=== PATIENT | female | born 1955 | race African-American/Black ===

== ENCOUNTER 2020-11-25 19:26 | Inpatient (IN) | payer MEDICARE, MEDICAID ==
[~2020-11-25] VITALS: Ht 162.6 cm; Wt 68.0 kg
[2020-11-25] MEDS ORDERED: DEXTROSE 50% WATER 50ML SYRINGE IV ONE (20:00)
[2020-11-25] MEDS ORDERED: LEVOFLOXACIN 500MG PREMIX 100 ML IV ONE (20:00)
[2020-11-25] MEDS ORDERED: VANCOMYCIN 1 G PREMIX 200 ML IV ONE (20:00)
[2020-11-25 20:44] LABS: BASOPHILS % 0.5 % (0.0-2.0); EOSINOPHILS % 1.7 % (0.0-5.0); HEMATOCRIT. 36.2 % (36.0-48.0); HEMOGLOBIN. 11.2 g/dL (12.0-16.0); LYMPHOCYTES % 21.2 % (20.0-50.0); MEAN CORPUSCULAR HEMOGLOBIN 29.3 pg (28.0-32.0); MEAN PLATELET VOLUME 9.6 fl (7.4-10.4); MONOCYTES % 7.6 % (2.0-8.0); PLATELET 199 x1000/uL (130-400); RED BLOOD CELL COUNT 3.81 mill/uL (4.2-5.4); RED CELL DISTRIBUTION WIDTH 17.4 % (11.6-14.6)
[2020-11-25 20:52] LABS: CHLORIDE 103 mEq/L (98-107)
[2020-11-25 20:56] LABS: ETHANOL BLOOD < 10 mg/dL
[2020-11-26] MEDS ORDERED: ASPIRIN 325MG EC TABLET PO ONE
[2020-11-26] MEDS ORDERED: ASPIRIN 325MG EC TABLET PO SCH (04:00)
[2020-11-26] MEDS ORDERED: DOCUSATE SODIUM 100MG CAPSULE PO PRN (06:45)
[2020-11-26] MEDS ORDERED: MAGNESIUM/ALUMINUM HYDROXIDE/SIMETHICONE 30ML UDC PO PRN (06:45)
[2020-11-26] MEDS ORDERED: GUAIFENESIN 200MG/10ML SUGAR FREE UDC PO PRN (06:45)
[2020-11-26] MEDS ORDERED: ONDANSETRON HCL 4MG/2ML INJ IV PRN (06:45)
[2020-11-26] MEDS ORDERED: ACETAMINOPHEN 325MG TABLET PO PRN (06:45)
[2020-11-26] MEDS ORDERED: CLONIDINE 0.1MG TABLET PO PRN (06:45)
[2020-11-26] MEDS ORDERED: ENOXAPARIN 40MG/0.4ML SYR SUBCUT SCH (06:45)
[2020-11-26] MEDS: DEXT 5%/0.45% NACL 1000ML 1,000 ML IV SCH ×3 (07:07→21:12)
[2020-11-26 09:35] VITALS: BP 89/72
[2020-11-26] MEDS: AMLODIPINE 10MG TABLET PO SCH (09:35)
[2020-11-26 10:00] VITALS: BP 89/72
[2020-11-26 12:00] VITALS: BP 116/59
[2020-11-26] MEDS ORDERED: HYDR-4135 PO (12:35)
[2020-11-26] MEDS ORDERED: SEVELAMER PO (12:35)
[2020-11-26] MEDS ORDERED: ATOR10TA69 PO (12:37)
[2020-11-26] MEDS ORDERED: CLOP75TA4 PO (12:37)
[2020-11-26] MEDS ORDERED: PANT40TA51 PO (12:37)
[2020-11-26] MEDS ORDERED: FAMO20TA8 PO (12:38)
[2020-11-26] MEDS ORDERED: CALC0.5C10 PO (12:38)
[2020-11-26] MEDS ORDERED: PREG75CA PO (12:38)
[2020-11-26 16:00] VITALS: BP 142/68
[2020-11-26 17:40] LABS: T4 FREE 4.37 ng/dL (0.76-1.46)
[2020-11-26 20:00] VITALS: BP 106/55
[2020-11-26] MEDS: ENOXAPARIN 30MG/0.3ML SYR SUBCUT SCH ×2 (21:00→21:12)
[2020-11-26] MEDS: BACITRACIN 15GM TUBE TOP SCH (21:24)
[2020-11-27] VITALS: BP 118/50
[2020-11-27 04:00] VITALS: BP 121/70
[2020-11-27 08:14] VITALS: BP 135/63
[2020-11-27] MEDS: BACITRACIN 15GM TUBE TOP SCH ×2 (09:00→21:54)
[2020-11-27] MEDS: AMLODIPINE 10MG TABLET PO SCH (09:00)
[2020-11-27] MEDS: DEXT 5%/0.45% NACL 1000ML 1,000 ML IV SCH ×2 (09:07→23:33)
[2020-11-27] MEDS ORDERED: PANTOPRAZOLE 40MG DR TABLET PO SCH (10:00)
[2020-11-27] MEDS: CLOPIDOGREL 75MG TABLET PO SCH (11:47)
[2020-11-27] MEDS: FAMOTIDINE 20MG TABLET PO SCH (11:47)
[2020-11-27] MEDS: CALCITRIOL 0.25MCG CAPSULE PO SCH (11:47)
[2020-11-27] MEDS: PREGABALIN 75MG CAPSULE PO SCH (11:47)
[2020-11-27 12:00] VITALS: BP 146/47
[2020-11-27] MEDS: METHIMAZOLE 5MG TABLET PO SCH ×2 (12:31→18:05)
[2020-11-27] MEDS: HYDRALAZINE HCL 50MG TABLET PO SCH ×2 (14:00→21:53)
[2020-11-27 15:52] LABS: BASOPHILS % 0.5 % (0.0-2.0); EOSINOPHILS % 3.1 % (0.0-5.0); HEMATOCRIT. 25.2 % (36.0-48.0); HEMOGLOBIN. 8.1 g/dL (12.0-16.0); LYMPHOCYTES % 21.5 % (20.0-50.0); MEAN CORPUSCULAR HEMOGLOBIN 29.6 pg (28.0-32.0); MEAN CORPUSCULAR VOLUME 91.4 fL (81.0-99.0); MEAN PLATELET VOLUME 10.1 fl (7.4-10.4); MONOCYTES % 14.2 % (2.0-8.0); NEUTROPHILS % 60.7 % (40.0-76.0); PLATELET 147 x1000/uL (130-400); RED BLOOD CELL COUNT 2.75 mill/uL (4.2-5.4); RED CELL DISTRIBUTION WIDTH 16.6 % (11.6-14.6)
[2020-11-27 16:02] LABS: CHLORIDE 100 mEq/L (98-107)
[2020-11-27 16:11] VITALS: BP 142/56
[2020-11-27 20:00] VITALS: BP 137/40
[2020-11-27] MEDS: ATORVASTATIN CALCIUM 10MG TABLET PO SCH (21:54)
[2020-11-27] MEDS: ENOXAPARIN 30MG/0.3ML SYR SUBCUT SCH (21:56)
[2020-11-28] VITALS: BP 131/55
[2020-11-28 04:00] VITALS: BP 154/63
[2020-11-28] MEDS: HYDRALAZINE HCL 50MG TABLET PO SCH ×3 (06:16→21:23)
[2020-11-28 06:19] LABS: CORTISOL 14.1 ucg/dL
[2020-11-28 06:55] LABS: FOLIC ACID (FOLATE) SERUM > 20.00 ng/mL (>5.38); VITAMIN B12 SERUM > 2000.0 pg/mL (211-911)
[2020-11-28 08:10] VITALS: BP 117/63
[2020-11-28] MEDS: FAMOTIDINE 20MG TABLET PO SCH (09:32)
[2020-11-28] MEDS: CLOPIDOGREL 75MG TABLET PO SCH (09:32)
[2020-11-28] MEDS: CALCITRIOL 0.25MCG CAPSULE PO SCH (09:32)
[2020-11-28] MEDS: METHIMAZOLE 5MG TABLET PO SCH ×4 (09:32→17:30)
[2020-11-28] MEDS: PREGABALIN 75MG CAPSULE PO SCH (09:32)
[2020-11-28] MEDS: BACITRACIN 15GM TUBE TOP SCH ×2 (09:33→10:03)
[2020-11-28] MEDS: AMLODIPINE 10MG TABLET PO SCH (11:43)
[2020-11-28 12:12] VITALS: BP 120/60
[2020-11-28] MEDS: DEXT 5%/0.45% NACL 1000ML 1,000 ML IV SCH (13:00)
[2020-11-28 16:34] VITALS: BP 143/55
[2020-11-28 20:00] VITALS: BP 124/61
[2020-11-28] MEDS: ATORVASTATIN CALCIUM 10MG TABLET PO SCH (21:23)
[2020-11-28] MEDS: METOPROLOL TARTRATE 25MG TABLET PO SCH (21:24)
[2020-11-28] MEDS: ENOXAPARIN 30MG/0.3ML SYR SUBCUT SCH (21:24)
[2020-11-29] MEDS: DEXT 5%/0.45% NACL 1000ML 1,000 ML IV SCH ×2 (01:40→15:01)
[2020-11-29 03:50] VITALS: BP 130/44
[2020-11-29] MEDS: HYDRALAZINE HCL 50MG TABLET PO SCH ×3 (06:33→21:29)
[2020-11-29] MEDS: AMLODIPINE 10MG TABLET PO SCH (09:00)
[2020-11-29] MEDS: METOPROLOL TARTRATE 25MG TABLET PO SCH ×2 (09:00→21:29)
[2020-11-29] MEDS: FAMOTIDINE 20MG TABLET PO SCH (09:15)
[2020-11-29] MEDS: PREGABALIN 75MG CAPSULE PO SCH (09:15)
[2020-11-29] MEDS: METHIMAZOLE 5MG TABLET PO SCH ×3 (09:15→17:33)
[2020-11-29] MEDS: CLOPIDOGREL 75MG TABLET PO SCH (09:15)
[2020-11-29] MEDS: CALCITRIOL 0.25MCG CAPSULE PO SCH (09:15)
[2020-11-29] MEDS: BACITRACIN 15GM TUBE TOP SCH ×2 (09:15→21:30)
[2020-11-29 10:06] LABS: C-PEPTIDE 16.6 ng/mL (1.1-4.4); INSULIN 18.8 uIU/mL (2.6-24.9)
[2020-11-29] MEDS ORDERED: CEFTAZIDIME PENTAHYDRATE 1 G in DEXTROSE 5% WATER 50 ML IV NR (14:00)
[2020-11-29 16:58] LABS: BASOPHILS % 0.5 % (0.0-2.0); EOSINOPHILS % 1.8 % (0.0-5.0); HEMATOCRIT. 25.6 % (36.0-48.0); HEMOGLOBIN. 8.2 g/dL (12.0-16.0); LYMPHOCYTES % 25.2 % (20.0-50.0); MEAN CORPUSCULAR HEMOGLOBIN 29.4 pg (28.0-32.0); MEAN CORPUSCULAR VOLUME 92.1 fL (81.0-99.0); MEAN PLATELET VOLUME 10.6 fl (7.4-10.4); MONOCYTES % 11.9 % (2.0-8.0); NEUTROPHILS % 60.6 % (40.0-76.0); PLATELET 167 x1000/uL (130-400); RED BLOOD CELL COUNT 2.78 mill/uL (4.2-5.4); RED CELL DISTRIBUTION WIDTH 16.7 % (11.6-14.6)
[2020-11-29 17:33] VITALS: BP 145/57
[2020-11-29 20:00] VITALS: BP 121/43
[2020-11-29] MEDS ORDERED: VANCOMYCIN 750 MG PREMIX 150 ML IV NR (20:30)
[2020-11-29] MEDS: ATORVASTATIN CALCIUM 10MG TABLET PO SCH (21:29)
[2020-11-29] MEDS: ENOXAPARIN 30MG/0.3ML SYR SUBCUT SCH (21:29)
[2020-11-30] VITALS: BP 100/47
[2020-11-30 04:00] VITALS: BP 110/46
[2020-11-30] MEDS: DEXT 5%/0.45% NACL 1000ML 1,000 ML IV SCH (04:20)
[2020-11-30] MEDS: HYDRALAZINE HCL 50MG TABLET PO SCH ×2 (06:00→13:49)
[2020-11-30 08:00] VITALS: BP 128/45
[2020-11-30] MEDS: PREGABALIN 75MG CAPSULE PO SCH (09:00)
[2020-11-30] MEDS: FAMOTIDINE 20MG TABLET PO SCH (09:33)
[2020-11-30] MEDS: CLOPIDOGREL 75MG TABLET PO SCH (09:33)
[2020-11-30] MEDS: CALCITRIOL 0.25MCG CAPSULE PO SCH (09:33)
[2020-11-30] MEDS: METHIMAZOLE 5MG TABLET PO SCH ×2 (09:33→13:49)
[2020-11-30] MEDS: AMLODIPINE 10MG TABLET PO SCH (09:34)
[2020-11-30] MEDS: METOPROLOL TARTRATE 25MG TABLET PO SCH (09:34)
[2020-11-30] MEDS: BACITRACIN 15GM TUBE TOP SCH (09:35)
[2020-11-30 12:00] VITALS: BP 97/70
[2020-11-30] MEDS ORDERED: CEFTAZIDIME 500MG in DEXTROSE 5% WATER 50ML IV SCH (14:00)
[2020-11-30 16:00] VITALS: BP 124/42
[2020-11-30 16:01] VITALS: BP 124/42
[2020-12-01 13:06] LABS: PRO INSULIN 13.7 pmol/L (0.0-10.0)
[2020-12-05 13:06] LABS: INSULIN AUTOANTIBODIES < 5.0 uU/mL (.)
== END 2020-11-30 17:41 | disposition home health service (06) | DRG 70 ==
LOC: ER 19:26 → MICUSO 22:19 → 6WST 11-26 08:19
PROVIDERS: ADMIT Hospitalist; ATTEND Hospitalist
PROC: 3E1M39Z Irrigation of Peritoneal Cavity using Dialysate, Percutaneous Approach (ICD-10-PCS; principal; 2020-11-26)
PROC: 3E1M39Z Irrigation of Peritoneal Cavity using Dialysate, Percutaneous Approach (ICD-10-PCS; 2020-11-27)
DX: G93.41 Metabolic encephalopathy (principal); I21.A1 Myocardial infarction type 2; N18.6 End stage renal disease; I13.2 Hypertensive heart and chronic kidney disease with heart failure and with stage 5 chronic kidney disease, or end stage renal disease; I47.2 Ventricular tachycardia; E16.2 Hypoglycemia, unspecified; E78.5 Hyperlipidemia, unspecified; D64.9 Anemia, unspecified; I50.9 Heart failure, unspecified; E78.00 Pure hypercholesterolemia, unspecified; F03.90 Unspecified dementia, unspecified severity, without behavioral disturbance, psychotic disturbance, mood disturbance, and anxiety; I35.0 Nonrheumatic aortic (valve) stenosis; E05.00 Thyrotoxicosis with diffuse goiter without thyrotoxic crisis or storm; Z99.2 Dependence on renal dialysis; Z82.49 Family history of ischemic heart disease and other diseases of the circulatory system; R73.9 Hyperglycemia, unspecified; I73.9 Peripheral vascular disease, unspecified
CPT/HCPCS: 36415; 71045; 76705; 80048; 80053; 80202; 80320; 82533; 82607; 82746; 82962; 83036; 83520; 83525; 83605; 83735; 83880; 84206; 84439; 84443; 84481; 84484; 84681; 85025; 86337; 93005; 93306; 93970; 97116; 97162; 97530; 99285; J0713; J1650; J1956; J3370; J7040; J7060; G0480